=== PATIENT | female | born 1970 | race Caucasian/White ===

== ENCOUNTER → 2019-05-02 | Outpatient (CLI) | payer OTHER ==
[2014-05-02 07:50] VITALS: BP 100/58
[~2019-05-02] MED LIST: 0.9 % SODIUM CHLORIDE 10 ML DISP.SYRIN. ID ONE; DOCU-109 PO; ESTERIFIED ESTROGENS; ESZO3TAB28 PO; GADOTERATE 5 MMOL/10ML VIAL. INT ART ONE; IOHEXOL 300 MG/ML 50 ML VIAL. INT ART ONE; LEVO75TA PO; LIDOCAINE 1% Multi-Dose 20 ML VIAL. ID ONE; PROG100C15 PO; TRAM-48 PO; TRAZ-86 PO
--- NOTE | 2019-05-02 18:19 | KCIC ---
MRI arthrogram of the left hip. HISTORY: Left hip pain. Prior labral tear with surgical repair. TECHNIQUE: Routine multiplanar sequences are obtained. FINDINGS: Comparison with prior study of 04/26/2015. Small linear defect at the base of the posterosuperior labrum. Similar location and morphology as the prior study although appears smaller on today's study. As seen on coronal series 5, images 9 through 12. Anterior labrum has a heterogeneous appearance with susceptibility artifact, similar to the prior study, indicative of prior surgical intervention. No clear-cut anterior labral detachment is confirmed. No acute fracture. No aggressive bone destruction. No abnormal soft tissue fluid collection. Gluteus minimus and medius tendons are intact. Hamstring tendon attachment intact. Iliopsoas tendon intact. Rectus femoris tendon attachment is intact. IMPRESSION: 1. Posterosuperior labral defect is again seen, but appears smaller. This could be due to mild recurrent tearing of rotator cuff tear, or some residual unrepaired tear. 2. Heterogeneous anterior labrum, somewhat difficult to evaluate due to postsurgical artifact but no definite detachment is seen. Electronically signed by: Rai Chang MD (05/02/2019 6:16 PM) [id number]
--- NOTE | 2019-05-02 18:21 | KCIC ---
Left hip injection using fluoroscopic guidance, prior to MR. HISTORY: Hip pain. TECHNIQUE: The procedure was explained to the patient as were potential risks, including among others infection, bleeding or allergic reaction. All questions were answered. Informed written and verbal consent was obtained. The hip region was prepped and draped in the usual sterile manner. Following administration of local anesthetic, a 22-gauge needle was advanced into the anterior hip. Following negative aspiration, 12 cc of a solution of 5cc Omnipaque-300 contrast, 5 cc 1% lidocaine, 10 cc normal saline, and 0.1 cc gadolinium was injected without difficulty. The needle was removed. There was good hemostasis at the injection site. The patient left in stable condition without immediate complication. A single spot image is obtained. FLUOROSCOPY TIME:?28 seconds Electronically signed by: Rai Chang MD (05/02/2019 6:18 PM) [id number]
== END | disposition home or self-care (01) ==
LOC: KCIC 12:11
PROVIDERS: ATTEND Family Medicine
DX: M25.552 Pain in left hip (principal)
CPT/HCPCS: 27095; 73722; 77002; A9575; Q9967; 73525